=== PATIENT | female | born 1970 | race Caucasian/White ===

== ENCOUNTER 2016-09-03 17:44 | Emergency (ER) | payer OTHER ==
[~2016-09-03] VITALS: Ht 172.7 cm; Wt 59.0 kg
[2016-09-03 17:46] VITALS: BP 131/84; PULSE 94; RESP 17; TEMP 98.1; O2SAT 100
[2016-09-03 18:00] VITALS: BP 154/75; PULSE 81; RESP 16; O2SAT 100
[2016-09-03] MEDS ORDERED: PROMETHAZINE INJ 25 MG/ML VIAL IM ONE (18:15)
[2016-09-03] MEDS ORDERED: SODIUM CHLORIDE 0.9% FLUSH 5 ML FLUSH IVF PRN (18:15)
[2016-09-03 18:18] VITALS: RESP 16; O2SAT 98
--- NOTE | 2016-09-03 18:19 | PD ---
HPI Chief Complaint: Skin Problem Time Seen by Provider: 18:15 Travel History International Travel<30 days: No Contact w/Intl Traveler<30days: No Traveled to known affect area: No History of Present Illness HPI Patient is a 46-year-old female brought into the emergency department for evaluation of a draining abdominal incision. Patient states it's been draining purulent drainage for approximately 3 days. Patient reports 8 out of 10 abdominal pain with associated nausea with vomiting. She states she has had no bowel movement in 3 days as well. Patient had a gastric bypass in 2003, in 2009 she reports it started leaking and she's had subsequent abdominal surgeries related to the gastric bypass and bowel obstructions in the past. The most recent surgery was in June 2016 in [place] where patient is from. She denies any fevers but states she does not have a thermometer in her hotel room. He denies any other medical history, she does endorse one pack per day tobacco use. PFSH Past Medical History Gastrointestinal Disorders: Yes Past Surgical History Abdominal Surgery: Yes (gastric bypass followed by repairs, bowel resection) Social History Alcohol Use: No Tobacco Use: Yes Substance Use: No Allergies-Medications (Allergen,Severity, Reaction): Coded Allergies: Iodine (Verified Allergy, Severe, rash, 09/03/16) ONLY topical, CAUSES RASH Cipro (Verified Adverse Reaction, Severe, Rash, 09/03/16) Hydrochlorothiazide (Verified Adverse Reaction, Severe, Rash, 09/03/16) Hyzaar (Verified Adverse Reaction, Severe, Rash, 09/03/16) Zofran (Verified Adverse Reaction, Severe, Rash, 09/03/16) Review of Systems Except as stated in HPI: all other systems reviewed are Neg General / Constitutional: No: Fever, Chills HENT: No: Headaches Cardiovascular: No: Chest Pain or Discomfort Respiratory: No: Shortness of Breath Gastrointestinal: Positive: Nausea, Vomiting, Abdominal Pain, Constipation, Changes in Bowel Habits, Loss of Appetite Genitourinary: No: Dysuria Neurologic: No: Focal Abnormalities Physical Exam Narrative GENERAL: Well-developed, well-nourished, alert female. Resting comfortably in no acute distress. SKIN: Warm and dry. Midline abdominal incision with a 0.5 cm area of excoriation just distal to the umbilicus. Purulent drainage noted, mildly tender to palpation, no induration noted. HEAD: Atraumatic. Normocephalic. EYES: Pupils equal and round. No scleral icterus. No injection or drainage. ENT: No nasal bleeding or discharge. Mucous membranes pink and moist. NECK: Trachea midline. No JVD. CARDIOVASCULAR: Regular rate and rhythm. No murmur appreciated. RESPIRATORY: No accessory muscle use. Scattered expiratory wheezes noted. Breath sounds equal bilaterally. GASTROINTESTINAL: Abdomen soft, non-tender, nondistended. Hepatic and splenic margins not palpable. MUSCULOSKELETAL: No obvious deformities. No clubbing. No cyanosis. No edema. NEUROLOGICAL: Awake and alert. No obvious cranial nerve deficits. Motor grossly within normal limits. Normal speech. PSYCHIATRIC: Appropriate mood and affect; insight and judgment normal. Data Data Last Documented VS Vital Signs Date Time Temp Pulse Resp B/P Pulse Ox O2 Delivery O2 Flow Rate FiO2 09/03/16 18:18 16 98 Room Air 09/03/16 18:00 81 154/75 09/03/16 17:46 98.1 Orders Complete Blood Count With Diff (09/03/16 18:12) Comprehensive Metabolic Panel (09/03/16 18:12) Lactic Acid (09/03/16 18:12) Prothrombin Time / Inr (Pt) (09/03/16 18:12) Act Partial Throm Time (Ptt) (09/03/16 18:12) Urinalysis - C+S If Indicated (09/03/16 18:12) Iv Access Insert/Monitor (09/03/16 18:12) Ecg Monitoring (09/03/16 18:12) Oximetry (09/03/16 18:12) NPO (09/03/16 18:12) Sodium Chlor 0.9% 1000 Ml Inj (Ns 1000 M (09/03/16 18:12) Sodium Chloride 0.9% Flush (Ns Flush) (09/03/16 18:15) Promethazine Inj (Phenergan Inj) (09/03/16 18:15) Wound Culture And Gram Stain (09/03/16 18:12) Consult Vascular Access Team (09/03/16 ) Vascular Poc Ultrasound (09/03/16 ) Morphine Inj (Morphine Inj) (09/03/16 20:30) Ct Abd/Pel W/O Iv Contrast (09/03/16 ) Labs Laboratory Tests Test 09/03/16 09/03/16 19:00 19:25 Lactic Acid Level 1.1 mmol/L White Blood Count 5.4 TH/MM3 Red Blood Count 4.17 MIL/MM3 Hemoglobin 11.3 GM/DL Hematocrit 34.8 % Mean Corpuscular Volume 83.5 FL Mean Corpuscular Hemoglobin 27.2 PG Mean Corpuscular Hemoglobin 32.6 % Concent Red Cell Distribution Width 20.3 % Platelet Count 435 TH/MM3 Mean Platelet Volume 8.6 FL Neutrophils (%) (Auto) 30.4 % Lymphocytes (%) (Auto) 55.9 % Monocytes (%) (Auto) 11.7 % Eosinophils (%) (Auto) 1.7 % Basophils (%) (Auto) 0.3 % Neutrophils # (Auto) 1.6 TH/MM3 Lymphocytes # (Auto) 3.0 TH/MM3 Monocytes # (Auto) 0.6 TH/MM3 Eosinophils # (Auto) 0.1 TH/MM3 Basophils # (Auto) 0.0 TH/MM3 CBC Comment DIFF FINAL Differential Comment Prothrombin Time 12.7 SEC Prothromb Time International 1.1 RATIO Ratio Activated Partial 27.8 SEC Thromboplast Time Sodium Level 140 MEQ/L Potassium Level 3.4 MEQ/L Chloride Level 104 MEQ/L Carbon Dioxide Level 28.7 MEQ/L Anion Gap 7 MEQ/L Blood Urea Nitrogen 14 MG/DL Creatinine 0.54 MG/DL Estimat Glomerular Filtration 122 ML/MIN Rate Random Glucose 92 MG/DL Calcium Level 8.3 MG/DL Total Bilirubin 0.4 MG/DL Aspartate Amino Transf 46 U/L (AST/SGOT) Alanine Aminotransferase 35 U/L (ALT/SGPT) Alkaline Phosphatase 410 U/L Total Protein 7.1 GM/DL Albumin 2.8 GM/DL [facility] Medical Decision Making Medical Screen Exam Complete: Yes Emergency Medical Condition: Yes Interpretation(s) Laboratory Tests Test 09/03/16 09/03/16 19:00 19:25 Lactic Acid Level 1.1 mmol/L White Blood Count 5.4 TH/MM3 Red Blood Count 4.17 MIL/MM3 Hemoglobin 11.3 GM/DL Hematocrit 34.8 % Mean Corpuscular Volume 83.5 FL Mean Corpuscular Hemoglobin 27.2 PG Mean Corpuscular Hemoglobin 32.6 % Concent Red Cell Distribution Width 20.3 % Platelet Count 435 TH/MM3 Mean Platelet Volume 8.6 FL Neutrophils (%) (Auto) 30.4 % Lymphocytes (%) (Auto) 55.9 % Monocytes (%) (Auto) 11.7 % Eosinophils (%) (Auto) 1.7 % Basophils (%) (Auto) 0.3 % Neutrophils # (Auto) 1.6 TH/MM3 Lymphocytes # (Auto) 3.0 TH/MM3 Monocytes # (Auto) 0.6 TH/MM3 Eosinophils # (Auto) 0.1 TH/MM3 Basophils # (Auto) 0.0 TH/MM3 CBC Comment DIFF FINAL Differential Comment Prothrombin Time 12.7 SEC Prothromb Time International 1.1 RATIO Ratio Activated Partial 27.8 SEC Thromboplast Time Sodium Level 140 MEQ/L Potassium Level 3.4 MEQ/L Chloride Level 104 MEQ/L Carbon Dioxide Level 28.7 MEQ/L Anion Gap 7 MEQ/L Blood Urea Nitrogen 14 MG/DL Creatinine 0.54 MG/DL Estimat Glomerular Filtration 122 ML/MIN Rate Random Glucose 92 MG/DL Calcium Level 8.3 MG/DL Total Bilirubin 0.4 MG/DL Aspartate Amino Transf 46 U/L (AST/SGOT) Alanine Aminotransferase 35 U/L (ALT/SGPT) Alkaline Phosphatase 410 U/L Total Protein 7.1 GM/DL Albumin 2.8 GM/DL Last Impressions Abdomen/Pelvis CT 09/03/16 0000 Signed Impressions: Service Date/Time: Saturday, September 03, 2016 20:22 - CONCLUSION: 1. Postoperative gastric bypass surgery with markedly dilated and fluid-filled loops of proximal small bowel in the upper abdomen measuring up to 5.5 cm in diameter. The anterior loop is in close approximation with the bowel staple line and anterior abdominal wall which may be the site of leakage. There is no free fluid or free air. Mild constipation. 2. Focal saccular bronchiectasis left lower lobe associated with scarring and some mucoid plugging. Lane Molina MD Vital Signs Date Time Temp Pulse Resp B/P Pulse Ox O2 Delivery O2 Flow Rate FiO2 09/03/16 18:01 16 09/03/16 17:46 98.1 94 17 131/84 100 Differential Diagnosis Cellulitis versus abscess versus bowel obstruction versus perforation versus other Narrative Course Patient is a 46-year-old female presenting to the emergency department evaluation of a draining abdominal wound. Additionally patient has had nausea, vomiting, and constipation for the last 3 days. Patient's had multiple abdominal surgeries secondary to a leaking gastric bypass. CT scan of the abdomen and pelvis, wound culture, labs ordered and pending. IV access initiated, patient placed on telemetry monitoring and continuous pulse oximetry. Family at bedside. Patient had a documented iodine allergy, when questioned patient states it was a reaction to topical iodine only, she's had IV contrast was able times in the past without any reaction. Radiologist called and stated he would not inject IV contrast media with patient 's documented iodine allergy regardless of whether or not it was topical. CT scan abdomen and pelvis was changed to without contrast per the radiologist's recommendation, he stated that he would be able to see what we wanted him to see without the IV contrast. Dr. Victoria discussed case with Dr. Martin regarding the CT scan results, please see her note regarding this. Patient will need to be transferred to another facility that has a surgeon that deals with gastric bypass surgeries. Care of patient will be transferred to Dr. Sidhu, at the end of Dr. Victoria, my attending' s shift due to the complexity of this case. Melanie Hernandez Sep 03, 2016 18:19
[2016-09-03] MEDS: SODIUM CHLOR 0.9% 1000 ML INJ 1,000 ML IV SCH ×2 (18:47→19:33)
[2016-09-03 19:42] LABS: AUTOMATED NEUTROPHIL # 1.6 TH/MM3 (1.8-7.7); BASOPHIL % 0.3 % (0.0-2.0); EOSINOPHIL # 0.1 TH/MM3 (0-0.4); EOSINOPHIL % 1.7 % (0.0-4.0); HEMATOCRIT 34.8 % (35.0-46.0); HEMO FLAGS DIFF FINAL; LYMPH % 55.9 % (9.0-44.0); MEAN CELL VOLUME 83.5 FL (80.0-100.0); MEAN CORPUSCULAR HEMOGLOBIN 27.2 PG (27.0-34.0); MEAN CORPUSCULAR HGB CONC 32.6 % (32.0-36.0); MONO % 11.7 % (0.0-8.0); NEUT % 30.4 % (16.0-70.0); PLATELET COUNT 435 TH/MM3 (150-450); RED BLOOD COUNT 4.17 MIL/MM3 (4.00-5.30); RED CELL DISTRIBUTION WIDTH 20.3 % (11.6-17.2); WHITE BLOOD COUNT 5.4 TH/MM3 (4.0-11.0)
[2016-09-03 19:57] LABS: APTT (PATIENT) 27.8 SEC (24.3-30.1); INTERNATIONAL NORMALIZED RATIO 1.1 RATIO; PROTHROMBIN TIME - PATIENT 12.7 SEC (9.8-11.6)
[2016-09-03 20:02] LABS: ANION GAP 7 MEQ/L (5-15); AST (GOT) 46 U/L (15-37); BICARBONATE 28.7 MEQ/L (21.0-32.0); BLOOD UREA NITROGEN 14 MG/DL (7-18); CHLORIDE 104 MEQ/L (98-107); GLOMERULAR FILTRATION RATE 122 ML/MIN (>89); POTASSIUM 3.4 MEQ/L (3.5-5.1); SODIUM (NA) 140 MEQ/L (136-145)
[2016-09-03 20:05] LABS: ALKALINE PHOSPHATASE 410 U/L (45-117); ALT (GPT) 35 U/L (10-53); TOTAL BILIRUBIN ADULT 0.4 MG/DL (0.2-1.0)
[2016-09-03] MEDS ORDERED: MORPHINE SULFATE 4 MG/ML INJ IV PUSH ONE ×2 (20:30→21:30)
--- NOTE | 2016-09-03 20:44 | RADRPT ---
EXAM DATE/TIME: 09/03/2016 20:22 [facility] COMPARISON: No previous studies available for comparison. INDICATIONS : Abdominal blockage repair in Jun 2016. Site now leaking and painful. ORAL CONTRAST: No oral contrast ingested. RADIATION DOSE: 4.86 CTDIvol (mGy) MEDICAL HISTORY : None SURGICAL HISTORY : Colon resection. Gastric bypass. ENCOUNTER: Initial ACUITY: 1 day PAIN SCALE: 8/10 LOCATION: Left abdomen TECHNIQUE: Volumetric scanning of the abdomen and pelvis was performed. Using automated exposure control and ad justment of the mA and/or kV according to patient size, radiation dose was kept as low as reasonably achievable to obtain optimal diagnostic quality images. FINDINGS: There is some focal saccular bronchiectasis in the anterior aspect of the left lower lobe with associ ated scarring and some mucoid plugging. This is probably related to prior infection. By history there is colon resection and gastric bypass surgery. There are fluid-filled loops of small bowel in the upper abdomen measuring up to 5.5 cm in diameter, associated with a gastric bypass surg elia. Bowel jose are seen at the proximal end of the dilated bowel which then extends into the duod enal C-loop and proximal jejunal loops are also dilated. There is close approximation with a previous laparotomy scar in the anterior abdominal wall which may represent a site of leakage. There is still colon remaining. There is no free air or significant free fluid. There is mild fatty liver. Previous cholecystectomy. Spleen is absent. Kidneys are symmetric without hydronephrosis. No pelvic masses. Mild constipation. No acute bony abnormalities.. CONCLUSION: 1. Postoperative gastric bypass surgery with markedly dilated and fluid-filled loops of proximal smal l bowel in the upper abdomen measuring up to 5.5 cm in diameter. The anterior loop is in close approx imation with the bowel staple line and anterior abdominal wall which may be the site of leakage. Ther e is no free fluid or free air. Mild constipation. 2. Focal saccular bronchiectasis left lower lobe associated with scarring and some mucoid plugging. Lane Molina MD on September 03, 2016 at 20:32 Board Certified Radiologist. This report was verified electronically.
--- NOTE | 2016-09-03 21:17 | PD ---
Physical Exam Narrative GENERAL: Well-nourished, well-developed patient. SKIN: Yellow Drainage noted through abdominal surgical scar HEAD: Normocephalic and atraumatic. EYES: No injection or drainage. ENT: No nasal drainage noted. NECK: Supple, trachea midline. CARDIOVASCULAR: Regular rate and rhythm RESPIRATORY: No increased effort. No accessory muscle use. GASTROINTESTINAL: Abdomen soft, diffusely tender, nondistended. NEUROLOGICAL: Awake and alert. Motor and sensory grossly within normal limits. Normal speech. Data Data Last Documented VS Vital Signs Date Time Temp Pulse Resp B/P Pulse Ox O2 Delivery O2 Flow Rate FiO2 09/03/16 21:31 80 16 131/71 98 Room Air 09/03/16 17:46 98.1 Orders Complete Blood Count With Diff (09/03/16 18:12) Comprehensive Metabolic Panel (09/03/16 18:12) Lactic Acid (09/03/16 18:12) Prothrombin Time / Inr (Pt) (09/03/16 18:12) Act Partial Throm Time (Ptt) (09/03/16 18:12) Iv Access Insert/Monitor (09/03/16 18:12) Ecg Monitoring (09/03/16 18:12) Oximetry (09/03/16 18:12) NPO (09/03/16 18:12) Sodium Chlor 0.9% 1000 Ml Inj (Ns 1000 M (09/03/16 18:12) Sodium Chloride 0.9% Flush (Ns Flush) (09/03/16 18:15) Promethazine Inj (Phenergan Inj) (09/03/16 18:15) Wound Culture And Gram Stain (09/03/16 18:12) Consult Vascular Access Team (09/03/16 ) Vascular Poc Ultrasound (09/03/16 ) Morphine Inj (Morphine Inj) (09/03/16 20:30) Ct Abd/Pel W/O Iv Contrast (09/03/16 ) Radiology Film Requests (09/03/16 ) Morphine Inj (Morphine Inj) (09/03/16 21:30) Nicotine 21 Mg Patch.24 Hr (Habitrol 21 (09/03/16 22:30) Hydromorphone Pf Inj (Dilaudid Pf Inj) (09/03/16 23:15) Labs Laboratory Tests Test 09/03/16 09/03/16 19:00 19:25 Lactic Acid Level 1.1 mmol/L White Blood Count 5.4 TH/MM3 Red Blood Count 4.17 MIL/MM3 Hemoglobin 11.3 GM/DL Hematocrit 34.8 % Mean Corpuscular Volume 83.5 FL Mean Corpuscular Hemoglobin 27.2 PG Mean Corpuscular Hemoglobin 32.6 % Concent Red Cell Distribution Width 20.3 % Platelet Count 435 TH/MM3 Mean Platelet Volume 8.6 FL Neutrophils (%) (Auto) 30.4 % Lymphocytes (%) (Auto) 55.9 % Monocytes (%) (Auto) 11.7 % Eosinophils (%) (Auto) 1.7 % Basophils (%) (Auto) 0.3 % Neutrophils # (Auto) 1.6 TH/MM3 Lymphocytes # (Auto) 3.0 TH/MM3 Monocytes # (Auto) 0.6 TH/MM3 Eosinophils # (Auto) 0.1 TH/MM3 Basophils # (Auto) 0.0 TH/MM3 CBC Comment DIFF FINAL Differential Comment Prothrombin Time 12.7 SEC Prothromb Time International 1.1 RATIO Ratio Activated Partial 27.8 SEC Thromboplast Time Sodium Level 140 MEQ/L Potassium Level 3.4 MEQ/L Chloride Level 104 MEQ/L Carbon Dioxide Level 28.7 MEQ/L Anion Gap 7 MEQ/L Blood Urea Nitrogen 14 MG/DL Creatinine 0.54 MG/DL Estimat Glomerular Filtration 122 ML/MIN Rate Random Glucose 92 MG/DL Calcium Level 8.3 MG/DL Total Bilirubin 0.4 MG/DL Aspartate Amino Transf 46 U/L (AST/SGOT) Alanine Aminotransferase 35 U/L (ALT/SGPT) Alkaline Phosphatase 410 U/L Total Protein 7.1 GM/DL Albumin 2.8 GM/DL [facility] Supervised Visit with ROHIT: Yes Interpretation(s) CBC & BMP Diagram 09/03/16 19:25 Last 24 hours Impressions Abdomen/Pelvis CT 09/03/16 0000 Signed Impressions: Service Date/Time: Saturday, September 03, 2016 20:22 - CONCLUSION: 1. Postoperative gastric bypass surgery with markedly dilated and fluid-filled loops of proximal small bowel in the upper abdomen measuring up to 5.5 cm in diameter. The anterior loop is in close approximation with the bowel staple line and anterior abdominal wall which may be the site of leakage. There is no free fluid or free air. Mild constipation. 2. Focal saccular bronchiectasis left lower lobe associated with scarring and some mucoid plugging. Lane Molina MD Narrative Course I, Dr. victoria, have reviewed the advance practice practitioner's documentation and am in agreement, met with the patient face to face, made the diagnosis, and the medical decision making was done by me. *My assessment and Findings: 46-year-old female presents with drainage from her gastric bypass site. Her original surgery was in 2003. She has been having complications since 2009. In June she had 5 surgeries all for leakage. Her surgeon is in [place] and she is visiting here for one week. CT shows leakage. Discuss with her surgeon Patient updated about transfer, multiple hospitals were called which do not except patient including [facility], [facility], [facility] patient updated and will try [facility] Physician Communication Physician Communication dr garner states he doesn't cover bariatric patients and dr marshall and abelino are out of town who are our bariatric surgeons, will need to transfer patient dr douglas will help assist with transfer after multiple calls placed without success and [facility] will be calling back, as I was leaving [facility] accepted patient and I helped assist with history for dr douglas Diagnosis Primary Impression: Enterocutaneous fistula Marcy Victoria MD Sep 03, 2016 21:16
[2016-09-03 21:31] VITALS: BP 131/71; PULSE 80; RESP 16; O2SAT 98
[2016-09-03] MEDS ORDERED: NICOTINE 21 MG/24 HR PATCH TD ONE (22:30)
--- NOTE | 2016-09-03 23:10 | PD ---
Physical Exam Date Seen by Provider: Sep 03, 2016 Narrative Patient was checked out to me at 2100 pending an accepting facility. The patient is having complications of bariatric surgery. Data Data Last Documented VS Vital Signs Date Time Temp Pulse Resp B/P Pulse Ox O2 Delivery O2 Flow Rate FiO2 09/03/16 21:31 80 16 131/71 98 Room Air 09/03/16 17:46 98.1 Orders Complete Blood Count With Diff (09/03/16 18:12) Comprehensive Metabolic Panel (09/03/16 18:12) Lactic Acid (09/03/16 18:12) Prothrombin Time / Inr (Pt) (09/03/16 18:12) Act Partial Throm Time (Ptt) (09/03/16 18:12) Urinalysis - C+S If Indicated (09/03/16 18:12) Iv Access Insert/Monitor (09/03/16 18:12) Ecg Monitoring (09/03/16 18:12) Oximetry (09/03/16 18:12) NPO (09/03/16 18:12) Sodium Chlor 0.9% 1000 Ml Inj (Ns 1000 M (09/03/16 18:12) Sodium Chloride 0.9% Flush (Ns Flush) (09/03/16 18:15) Promethazine Inj (Phenergan Inj) (09/03/16 18:15) Wound Culture And Gram Stain (09/03/16 18:12) Consult Vascular Access Team (09/03/16 ) Vascular Poc Ultrasound (09/03/16 ) Morphine Inj (Morphine Inj) (09/03/16 20:30) Ct Abd/Pel W/O Iv Contrast (09/03/16 ) Radiology Film Requests (09/03/16 ) Morphine Inj (Morphine Inj) (09/03/16 21:30) Nicotine 21 Mg Patch.24 Hr (Habitrol 21 (09/03/16 22:30) Hydromorphone Pf Inj (Dilaudid Pf Inj) (09/03/16 23:15) Labs Laboratory Tests Test 09/03/16 09/03/16 19:00 19:25 Lactic Acid Level 1.1 mmol/L White Blood Count 5.4 TH/MM3 Red Blood Count 4.17 MIL/MM3 Hemoglobin 11.3 GM/DL Hematocrit 34.8 % Mean Corpuscular Volume 83.5 FL Mean Corpuscular Hemoglobin 27.2 PG Mean Corpuscular Hemoglobin 32.6 % Concent Red Cell Distribution Width 20.3 % Platelet Count 435 TH/MM3 Mean Platelet Volume 8.6 FL Neutrophils (%) (Auto) 30.4 % Lymphocytes (%) (Auto) 55.9 % Monocytes (%) (Auto) 11.7 % Eosinophils (%) (Auto) 1.7 % Basophils (%) (Auto) 0.3 % Neutrophils # (Auto) 1.6 TH/MM3 Lymphocytes # (Auto) 3.0 TH/MM3 Monocytes # (Auto) 0.6 TH/MM3 Eosinophils # (Auto) 0.1 TH/MM3 Basophils # (Auto) 0.0 TH/MM3 CBC Comment DIFF FINAL Differential Comment Prothrombin Time 12.7 SEC Prothromb Time International 1.1 RATIO Ratio Activated Partial 27.8 SEC Thromboplast Time Sodium Level 140 MEQ/L Potassium Level 3.4 MEQ/L Chloride Level 104 MEQ/L Carbon Dioxide Level 28.7 MEQ/L Anion Gap 7 MEQ/L Blood Urea Nitrogen 14 MG/DL Creatinine 0.54 MG/DL Estimat Glomerular Filtration 122 ML/MIN Rate Random Glucose 92 MG/DL Calcium Level 8.3 MG/DL Total Bilirubin 0.4 MG/DL Aspartate Amino Transf 46 U/L (AST/SGOT) Alanine Aminotransferase 35 U/L (ALT/SGPT) Alkaline Phosphatase 410 U/L Total Protein 7.1 GM/DL Albumin 2.8 GM/DL MDM Supervised Visit with ROHIT: No Narrative Course I have spoken with Dr. Anderson at the [facility] in [place] who has agreed to accept the patient in transfer. I have also spoken with the patient's surgeon in [place], Dr. Ovalles. The patient has requested a nicotine patch which has been ordered. She has also requested more pain medication. I have ordered Dilaudid 2 mg IV. The transfer paperwork has been filled out. Diagnosis Primary Impression: Postoperative complication Meggan Sidhu MD Sep 03, 2016 23:10
[2016-09-03] MEDS ORDERED: HYDROmorphone HCL PF 2 MG/ML VIAL IV PUSH ONE (23:15)
== END 2016-09-03 23:43 | disposition short-term general hospital (02) ==
LOC: NEPA 17:44
DX: K63.2 Fistula of intestine (principal); K95.89 Other complications of other bariatric procedure; R10.9 Unspecified abdominal pain; R11.2 Nausea with vomiting, unspecified; K59.00 Constipation, unspecified; F17.200 Nicotine dependence, unspecified, uncomplicated; Z98.890 Other specified postprocedural states; Z87.19 Personal history of other diseases of the digestive system
CPT/HCPCS: 74176; 80053; 83605; 85025; 85610; 85730; 86403; 87070; 96361; 96372; 96374; 96375; 96376; 99285; J1170; J2270; J2550; J7030; 87205